=== PATIENT | female | born 1965 | race Caucasian/White ===

== ENCOUNTER 2022-02-03 09:02 | Emergency (ER) | payer SELFPAY ==
[2022-02-03 09:19] VITALS: BP 151/95
[2022-02-03 09:48] LABS: Basophils # (Auto) 0.1 K/mm3 (0.0-0.1); Basophils % (Auto) 2.1 % (0.0-1.8); Eosinophils # (Auto) 0.3 K/mm3 (0.0-0.4); Eosinophils % (Auto) 7.8 % (0.0-4.3); Hematocrit 37.9 % (30.3-42.9); Hemoglobin 12.3 gm/dl (10.1-14.3); Lymphocytes # (Auto) 1.1 K/mm3 (1.2-5.4); Mean Corpuscular HGB Conc 33 % (30-34); Mean Corpuscular Volume 97 fl (79-97); Monocytes # (Auto) 0.4 K/mm3 (0.0-0.8); Monocytes % (Auto) 9.5 % (0.0-7.3); Platelet Count 254 K/mm3 (140-440); Red Cell Distribution Width 15.7 % (13.2-15.2)
[2022-02-03 10:02] LABS: Calcium 8.6 mg/dL (8.4-10.2)
== END 2022-02-04 05:00 | disposition left against medical advice (07) ==
LOC: ED 09:02
DX: Z00.8 Encounter for other general examination (principal); Z53.21 Procedure and treatment not carried out due to patient leaving prior to being seen by health care provider
CPT/HCPCS: 36415; 80048; 85025